=== PATIENT | female | born 1970 | race Caucasian/White ===

== ENCOUNTER 2021-12-20 06:41 | Emergency (ER) | payer BC, SELFPAY ==
[2021-12-20 07:28] VITALS: BP 151/97; PULSE 78; RESP 14; TEMP 36.4; O2SAT 95; BMI 24.7
[2021-12-20 07:30] LABS: Appearance Urine HAZY; Color Urine YELLOW; Glucose Urine UA NEG (NEG); Leukocyte Esterase Urine 2+ (NEG); Nitrite Urine NEG (NEG); PH 5.5 (5.0-8.0); UACC Culture Trigger YES; Urine Blood 1+ (NEG); Urine Ketones NEG (NEG); Urine Protein NEG (NEG-TRACE)
--- NOTE | 2021-12-20 07:35 | ED.FEMALEGU ---
HPI - Female Genitourinary General Chief complaint: Urogenital-Female Stated complaint: question uti Time Seen by Provider: 12/20/21 07:14 Source: patient Mode of arrival: ambulatory Limitations: no limitations History of Present Illness MD elicited complaint: dysuria and UTI Pertinent past history: other (hx of UTIs in 20s) Onset (ago): day(s) (2 days ago) Location of symptoms: suprapubic Severity: mild Quality of pain: burning Consistency: intermittent Vaginal discharge: none Vaginal bleeding: none Urinary symptoms: Dysuria, Urgency and Frequency Exacerbating factors: urination and intercourse Relieving factors: none Associated symptoms: denies other symptoms Treatment prior to arrival: none Sexual activity: Yes (started after intercourse) Patient : No Related Data Previous Rx's Medication Instructions Recorded cefuroxime axetil 500 mg tablet 500 mg PO BID 7 Days #14 tab 12/20/21 phenazopyridine 100 mg tablet 100 mg PO TID PRN #6 tab 12/20/21 (Pyridium) Allergies Allergy/AdvReac Type Severity Reaction Status Date / Time Sulfa (Sulfonamide Allergy Mild Itching Verified 12/20/21 07:41 Antibiotics) Review of Systems Review of Systems: Constitutional : No Fever, No Chills ENT/Mouth : No sore throat Eyes: No Eye Pain, No Swelling, No Redness Cardiovascular : No Chest Pain, No SOB Respiratory : No Cough, No Sputum, No Wheezing Gastrointestinal : no Nausea, no Vomiting, No Diarrhea, no abdominal pain Genitourinary : positive Dysuria, positive urinary frequency, no Hematuria, no Flank Pain, no hesitancy, no vaginal discharge Musculoskeletal : No joint pain, No Myalgias Skin : No Skin Lesions, No rash Neuro : No Weakness, No Numbness, No Headache Psych : No Anxiety/Panic, No Depression Heme/Lymph: No Bruising, No Lymphadenopathy Endocrine : No Polyuria, No Polydipsia All other systems reviewed and are negative [facility] Past Medical History Attestation statement: The following information was validated with the patient. Medical History Asthma UTI (urinary tract infection) Social History Social History (Updated 12/20/21 @ 07:44 by Danielle Redman DO) Patient Tobacco Use Status: Tobacco use Unknown Advance Directives: No Advance Directives Information Provided: No Patient : No Physical Exam Vital Signs: Vital Signs: Last Vital Signs Temp 97.6 F 12/20/21 07:28 Pulse 78 12/20/21 07:28 Resp 14 12/20/21 07:28 BP 151/97 H 12/20/21 07:28 Pulse Ox 95 12/20/21 07:28 BMI result Body Mass Index 24.7 Appearance: Alert. Oriented X3. No acute distress. Eyes: Pupils equal, round and reactive to light. ENT: Pharynx normal. Neck: Normal inspection. Neck supple. CVS: Normal heart rate and rhythm. Pulses normal. Respiratory: No respiratory distress. Breath sounds normal. Abdomen: Soft and nontender. no CVA ttp Skin: Skin warm and dry. Normal skin color. Normal skin turgor. Extremities: No lower extremity edema. No calf ttp Neuro: Oriented X 3. No motor deficit. No sensory deficit. MDM - Female Genitourinary MDM Narrative Medical decision making narrative: 51 yo female with recent intercourse which triggers her UTIs comes in with dysuria and frequency no discharge/vomiting/flank pain no concern for STI but hx of UTI and BV when she has sex with her partner - at this time will obtain UA and BV panel. No signs of pyelonephritis. Dispo per results and findings. Lab Data Labs: Lab Results 12/20/21 Range/Units 07:18 Urine Color YELLOW Urine Appearance HAZY Urine pH 5.5 (5.0-8.0) Ur Specific [place] 1.020 (1.005-1.025) Urine Protein NEG (NEG-TRACE) MG/DL Urine Glucose (UA) NEG (NEG) MG/DL Urine Ketones NEG (NEG) MG/DL Urine Blood 1+ H (NEG) Urine Nitrite NEG (NEG) Ur Leukocyte Esterase 2+ H (NEG) Urine RBC 0-2 (0) /HPF Urine WBC 15-29 H (0-4) /HPF Urine WBC Clumps NOTED Ur Squamous Epith Cells 1+ /LPF Urine Bacteria TRACE /LPF Discharge Plan Discharge Clinical Impression: Urinary tract infection Qualifiers: Urinary tract infection type: acute cystitis Hematuria presence: without hematuria Qualified Code(s): N30.00 - Acute cystitis without hematuria Patient Disposition: Home, Self-Care Instructions: Urinary Tract Infection in Women (ED) Additional Instructions: return to ED for any worsening symptoms or concerns bacterial vaginosis panel will result in 24 hours we will call you if positive Prescriptions: New cefuroxime axetil 500 mg tablet 500 mg PO BID 7 Days Qty: 14 0RF phenazopyridine [Pyridium] 100 mg tablet 100 mg PO TID PRN (Reason: pain) Qty: 6 0RF Stand Alone Forms: Work/School Release
[2021-12-20 07:55] LABS: Bacteria Urine TRACE /LPF; RBC Urine 0-2 /HPF (0); Squamous Epithelial Cell Urine 1+ /LPF; WBC Clumps Urine NOTED
[2021-12-20 12:44] LABS: BV Int Neg Control Negative (Negative); BV Int Pos Control Positive (Positive)
== END 2021-12-20 08:28 | disposition home or self-care (01) ==
PROVIDERS: Emergency Provider Emergency Medicine
DX: N30.00 Acute cystitis without hematuria (principal); R30.0 Dysuria; Z79.899 Other long term (current) drug therapy
CPT/HCPCS: 81001; 87086; 87147; 87480; 87510; 87660; 99283

== ENCOUNTER 2022-01-08 20:01 | Emergency (ER) | payer BC, SELFPAY ==
--- NOTE | ~2022-01-08 | XR_ITS ---
EXAMINATION: PORTABLE CHEST 1 VIEW CLINICAL INFORMATION: CP . COMPARISON: 02/28/2020 chest x-ray. TECHNIQUE: Portable frontal view of the chest was obtained. FINDINGS: Lungs well-expanded. There are subtle scattered opacities bilaterally. I'm uncertain if this is due to underlying airspace disease or multiple healing rib fractures. There is a displaced fracture through the anterior lateral left sixth and seventh rib. Bony calcification of multiple healing ribs could have this appearance. These changes are new from the prior study. No dense consolidation. There is blunting of the right costophrenic angle suggesting a small right-sided pleural effusion. No overt edema or pneumothorax. Cardiac and mediastinal silhouettes within normal limits for size. No acute bony abnormality. XR/XR chest 1V IMPRESSION: Small right-sided effusion. There is subtle nodular opacities bilaterally. I'm uncertain if this represents an underlying airspace disease or multiple healing rib fractures. There do appear to be at least 2 healing rib fractures on the left. Would clinically correlate for history of trauma.
--- NOTE | 2022-01-08 20:03 | ECG_ITS ---
Test Reason : CP Blood Pressure : / mmHG Vent. Rate : 092 BPM Atrial Rate : 092 BPM P-R Int : 142 ms QRS Dur : 094 ms QT Int : 386 ms P-R-T Axes : 067 045 047 degrees QTc Int : 477 ms Normal sinus rhythm Normal ECG No previous ECGs available Referred By: Generic ED Physician Electronically Signed By:LANDON DAILEY MD
[2022-01-08 20:11] VITALS: BP 146/97; PULSE 95; RESP 18; TEMP 37.2; O2SAT 94; BMI 27.3
[2022-01-08 20:34] LABS: MANUAL DIFF FLAG NO
[2022-01-08 20:36] LABS: Basophils Percent Auto 0.4 % (0-2); Eosinophils Absolute Auto 0.1 X10*3/uL (0.0-0.4); Eosinophils Percent Auto 0.5 % (0-4); Hematocrit 42.6 % (37.0-47.0); Hemoglobin 14.3 g/dl (12.0-16.0); Imm Gran Abs Auto 0.04 X10*3/uL (0.00-0.03); Imm Gran Pct Auto 0.4 % (0.0-0.4); Lymphocytes Absolute Auto 4.2 X10*3/uL (1.2-4.9); Lymphocytes Percent Auto 37.6 % (20-40); Mean Corpuscular HGB Conc 33.6 g/dl (31.0-35.0); Mean Corpuscular Hemoglobin 33.9 pg (27.0-33.0); Mean Corpuscular Volume 100.9 fL (80.0-98.0); Mean Platelet Volume 9.1 fL (9.4-12.3); Monocytes Absolute Auto 0.4 X10*3/uL (0.1-1.2); Monocytes Percent Auto 3.6 % (2-11); Neutrophils Absolute Auto 6.5 x10*3/uL (2.0-8.3); Neutrophils Percent Auto 57.5 % (45-73); Platelet Count 286 X10*3/uL (160-400); Red Blood Count 4.22 X10*6/uL (4.20-5.50); Red Cell Distribution Width 12.2 % (11.0-16.0); White Blood Count 11.3 X10*3/uL (4.8-10.8)
[2022-01-08 20:52] LABS: Anion Gap 14 (12-20); Blood Urea Nitrogen 15 mg/dL (9-16); Calcium 9.2 mg/dL (8.4-10.2); Carbon Dioxide 22 mmol/L (22-29); Chloride 106 mmol/L (96-108); Creatinine Clr Calc Pharmacy 114.8; Estimated Glomerular Filt Rate > 60; Glucose Random 110 mg/dL (60-115); Potassium 3.5 mmol/L (3.3-5.1); Sodium 138 mmol/L (135-145)
[2022-01-08 21:00] LABS: Troponin-I High Sensitivity < 3.5 ng/L (<3.5-17.0)
--- NOTE | 2022-01-08 21:14 | ED_ITS ---
HPI - Chest Pain General Chief Complaint: Chest Pain Stated Complaint: heart pain, chest tightness 1hr, asthmatic Time Seen by Provider: 01/08/22 21:01 History of Present Illness HPI narrative: Patient is a 51-year-old female presents today with having chest pain that is on right side and on the left side. The right-sided chest pain is more constant it has been ongoing since 17:00 left-sided chest pain is episodic it comes every 15 minutes it is very sharp it lasts for approximately 10 seconds and goes away. No extreme shortness of breath no diaphoresis. Patient does have a history hypertension, high cholesterol and has been a lifelong smoker. Patient denies any history of PA. patient from home. No coughing or congestion upper respiratory symptoms the change from previous. Patient immunized for COVID. Related Data Previous Rx's Medication Instructions Recorded cefuroxime axetil 500 mg tablet 500 mg PO BID 7 Days #14 tab 12/20/21 phenazopyridine 100 mg tablet 100 mg PO TID PRN #6 tab 12/20/21 (Pyridium) metronidazole 500 mg tablet 500 mg PO BID 10 Days #20 tab 12/22/21 Allergies Allergy/AdvReac Type Severity Reaction Status Date / Time Sulfa (Sulfonamide Allergy Mild Itching Verified 12/20/21 07:41 Antibiotics) Review of Systems Review of Systems: No fever no chills positive generalized malaise positive chest pain no diaphoresis Yes all other systems are reviewed and are negative [facility] Past Medical History Attestation statement: The following information was validated with the patient. Source: unable to obtain Medical History Asthma UTI (urinary tract infection) Social History Social History Patient Tobacco Use Status: Tobacco use Unknown Advance Directives: No Advance Directives Information Provided: Yes Physical Exam Vital Signs: Vital Signs: Last Vital Signs Temp 98.1 F 01/08/22 21:21 Pulse 87 01/08/22 23:25 Resp 20 01/08/22 23:25 BP 139/90 H 01/08/22 21:21 Pulse Ox 95 01/08/22 21:21 BMI result Body Mass Index 27.3 Appearance: Alert. Oriented X3. No acute distress. Eyes: Pupils equal, round and reactive to light. ENT: Pharynx normal. Neck: Normal inspection. Neck supple. No lymph nodes noted. No crepitus CVS: Normal heart rate and rhythm. Pulses normal. Normal S1 and S2 Respiratory: No respiratory distress. Breath sounds normal. No Wheezing. No rales Abdomen: Soft and nontender. No rigidity. No distention. good BS x4 Skin: Skin warm and dry. Normal skin color. Normal skin turgor. Extremities: No lower extremity edema. Neurovascular intact to all extremities. No Lacerations. No Rash Neuro: Oriented X 3. No motor deficit. No sensory deficit. Moving all extermities. No slurred speech MDM - Chest Pain MDM Narrative Medical decision making narrative: EKG showed a sinus pattern heart rate is 90 VA QRS QT within normal limits there is no acute ST segment elevation noted. Patient's chest pain is atypical although she does have multiple risk factor including smoking, hypertension, hypercholesterolemia. Patient's chest x-ray showed some nodules along with a small pleural effusion. Explained to patient the need to closely follow-up. Risk of cancer exists given patient's extensive history of smoking. Patient states understanding. Will get a 2nd set of cardiac enzymes given patient has a constant chest pain as well. Patient is currently in stable condition. Chest pain is atypical does have multiple risk factor with a negative troponin. Heart score is a 3. Two sets of heart enzymes were negative. They would less than 3.5. Patient's D-dimer is less than 250. No evidence for pulmonary emboli. Patient's chest pain is extremely atypical. Chest x-ray did find some nodules. Positive small pleural effusion. Will have patient follow-up on an outpatient basis. She is in stable condition with discharge home. Medical Records Data Attestation: I reviewed the patient's medical records. Lab Data Attestation: I reviewed the patient's lab results. Result diagrams: 01/08/22 20:28 01/08/22 20:32 Labs: Lab Results 01/08/22 01/08/22 01/08/22 Range/Units 20:28 20:32 20:32 WBC 11.3 H (4.8-10.8) X10*3/uL RBC 4.22 (4.20-5.50) X10*6/uL Hgb 14.3 (12.0-16.0) g/dl Hct 42.6 (37.0-47.0) % MCV 100.9 H (80.0-98.0) fL MCH 33.9 H (27.0-33.0) pg MCHC 33.6 (31.0-35.0) g/dl RDW 12.2 (11.0-16.0) % Plt Count 286 (160-400) X10*3/uL MPV 9.1 L (9.4-12.3) fL Immature Gran % (Auto) 0.4 (0.0-0.4) % Neut % (Auto) 57.5 (45-73) % Lymph % (Auto) 37.6 (20-40) % [place] % (Auto) 3.6 (2-11) % Eos % (Auto) 0.5 (0-4) % Baso % (Auto) 0.4 (0-2) % Lymph # (Auto) 4.2 (1.2-4.9) X10*3/uL [place] # (Auto) 0.4 (0.1-1.2) X10*3/uL Eos # (Auto) 0.1 (0.0-0.4) X10*3/uL Baso # (Auto) 0.0 (0.0-0.2) X10*3/uL Abs Immat Gran (auto) 0.04 H (0.00-0.03) X10*3/uL Absolute Neuts (auto) 6.5 (2.0-8.3) x10*3/uL Absolute Nucleated RBC 0.000 (0.0-0.012) X10*3/uL Nucleated RBC % (auto) 0.0 (0.0-0.2) /100WBC D-Dimer High Sensitivty NG/ML Sodium 138 (135-145) mmol/L Potassium 3.5 (3.3-5.1) mmol/L Chloride 106 (96-108) mmol/L Carbon Dioxide 22 (22-29) mmol/L Anion Gap 14 (12-20) BUN 15 (9-16) mg/dL Creatinine 0.55 (0.5-1.4) mg/dL Estim Creat Clear Calc 114.8 Estimated GFR > 60 Random Glucose 110 (60-115) mg/dL Calcium 9.2 (8.4-10.2) mg/dL Troponin I High Sens < 3.5 (<3.5-17.0) ng/L COVID-19 (MARKEL) (Negative) COVID-19 Clin Com 01/08/22 01/08/22 01/08/22 Range/Units 21:25 21:58 22:28 WBC (4.8-10.8) X10*3/uL RBC (4.20-5.50) X10*6/uL Hgb (12.0-16.0) g/dl Hct (37.0-47.0) % MCV (80.0-98.0) fL MCH (27.0-33.0) pg MCHC (31.0-35.0) g/dl RDW (11.0-16.0) % Plt Count (160-400) X10*3/uL MPV (9.4-12.3) fL Immature Gran % (Auto) (0.0-0.4) % Neut % (Auto) (45-73) % Lymph % (Auto) (20-40) % [place] % (Auto) (2-11) % Eos % (Auto) (0-4) % Baso % (Auto) (0-2) % Lymph # (Auto) (1.2-4.9) X10*3/uL [place] # (Auto) (0.1-1.2) X10*3/uL Eos # (Auto) (0.0-0.4) X10*3/uL Baso # (Auto) (0.0-0.2) X10*3/uL Abs Immat Gran (auto) (0.00-0.03) X10*3/uL Absolute Neuts (auto) (2.0-8.3) x10*3/uL Absolute Nucleated RBC (0.0-0.012) X10*3/uL Nucleated RBC % (auto) (0.0-0.2) /100WBC D-Dimer High Sensitivty < 150 NG/ML Sodium (135-145) mmol/L Potassium (3.3-5.1) mmol/L Chloride (96-108) mmol/L Carbon Dioxide (22-29) mmol/L Anion Gap (12-20) BUN (9-16) mg/dL Creatinine (0.5-1.4) mg/dL Estim Creat Clear Calc Estimated GFR Random Glucose (60-115) mg/dL Calcium (8.4-10.2) mg/dL Troponin I High Sens < 3.5 (<3.5-17.0) ng/L COVID-19 (MARKEL) Negative (Negative) COVID-19 Clin Com See Note Discharge Plan Discharge Clinical Impression: Atypical chest pain Patient Disposition: Home, Self-Care Instructions: Chest Pain (ED) Prescriptions: No Action cefuroxime axetil 500 mg tablet 500 mg PO BID 7 Days Qty: 14 0RF phenazopyridine [Pyridium] 100 mg tablet 100 mg PO TID PRN (Reason: pain) Qty: 6 0RF metronidazole 500 mg tablet 500 mg PO BID 10 Days Qty: 20 0RF Referrals: Physician,Unknown J [Primary Care Provider] - 2 days ( Nodules were noted in your chest x-ray. Given you a smoker you will need close follow-up with your primary physician for further workup. Risk of cancer exists.) Stewart Enciso MD [Physician] - 2 days
[2022-01-08 21:21] VITALS: BP 139/90; PULSE 92; RESP 16; TEMP 36.7; O2SAT 95
[2022-01-08 22:06] LABS: COVID-19 Test Negative (Negative)
[2022-01-08 22:26] LABS: Troponin-I High Sensitivity < 3.5 ng/L (<3.5-17.0)
[2022-01-08 23:25] VITALS: PULSE 87; RESP 20; O2SAT 97
[2022-01-08] MEDS: Albuterol Sulfate (0.083%) 2.5 MG/3 ML VIAL.NEB INHALE (23:25)
[2022-01-09 00:45] LABS: D Dimer High Sensitivity < 150 NG/ML
== END 2022-01-09 01:08 | disposition home or self-care (01) ==
PROVIDERS: Emergency Provider Emergency Medicine Emergency Medical Services
DX: R07.89 Other chest pain (principal); R91.8 Other nonspecific abnormal finding of lung field; J90 Pleural effusion, not elsewhere classified; Z20.822 Contact with and (suspected) exposure to COVID-19; I10 Essential (primary) hypertension; E78.5 Hyperlipidemia, unspecified; F17.200 Nicotine dependence, unspecified, uncomplicated
CPT/HCPCS: 36415; 71045; 80048; 84484; 85025; 85379; 87635; 93005; 94640; 99283; 99284

== ENCOUNTER 2022-04-19 10:36 | Emergency (ER) | payer BC, SELFPAY ==
--- NOTE | ~2022-04-19 | XR_ITS ---
EXAMINATION: XR CHEST CLINICAL INFORMATION: Cough and wheezing COMPARISON: Previous chest x-ray most recent December 2021 TECHNIQUE: 2 views of the chest were obtained. FINDINGS: The cardiac and mediastinal contours are normal. There are several nodular opacities in the left lung. These are in a line and appear to be associated with healing rib fractures. There are healing left anterior fifth and sixth and seventh rib fractures. There are old healed right posterior lateral seventh and eighth rib fractures. The lungs are otherwise clear. There is no pleural effusion or pneumothorax. There are degenerative changes of the spine. XR/XR chest 2V IMPRESSION: Left nodular densities probably related to healing rib fractures. There is evidence of bilateral healing rib fractures.
[2022-04-19 10:45] VITALS: BP 98/48; PULSE 94; RESP 18; TEMP 36.9; O2SAT 98; BMI 22.9
[2022-04-19 11:14] LABS: COVID-19 Test Negative (Negative); IDNOW Serial# 9DB6401D; Influenza A Negative (Negative); Influenza B2 Negative (Negative)
--- NOTE | 2022-04-19 11:26 | ED_ITS ---
HPI - General Adult General Chief complaint: General Medical Stated complaint: SOB, loss of appetite, sore throat, body aches Time Seen by Provider: 04/19/22 11:16 Source: patient and family Mode of arrival: ambulatory Limitations: no limitations History of Present Illness HPI narrative: 51-year-old female with a history of asthma and hypertension here with reports of continued cough, wheezing, shortness of breath since April 06. Patient completed a course of azithromycin and prednisone yesterday but having continued symptoms. She does feel like the antibiotics did seem to help. She denies any fevers. Patient has had body aches, nausea, loss of appetite, headache, bilateral ear pain and sore throat. She has received COVID vaccination Related Data Previous Rx's Medication Instructions Recorded cefuroxime axetil 500 mg tablet 500 mg PO BID 7 days #14 tabs 12/20/21 phenazopyridine 100 mg tablet 100 mg PO TID PRN pain 6 doses #6 12/20/21 (Pyridium) tabs metronidazole 500 mg tablet 500 mg PO BID 10 days #20 tabs 12/22/21 albuterol sulfate 2.5 mg (3 mL) inhalation Q4-6H PRN 01/09/22 sob #75 mL azithromycin 250 mg tablet See Rx Instructions PO .COMPLEX 01/09/22 upper resp infection #6 tabs doxycycline monohydrate 100 mg 100 mg PO BID #14 tabs 04/19/22 tablet ipratropium 0.5 mg-albuterol 3 mg 3 ml inhalation Q4H PRN wheezing 04/19/22 (2.5 mg base)/3 mL nebulization #90 mL soln ondansetron 4 mg disintegrating 4 mg PO Q6H PRN nausea and 04/19/22 tablet vomiting #14 tabs prednisone 20 mg tablet 40 mg PO DAILY #10 tabs 04/19/22 Allergies Allergy/AdvReac Type Severity Reaction Status Date / Time Sulfa (Sulfonamide Allergy Mild Itching Verified 12/20/21 07:41 Antibiotics) Review of Systems Review of Systems: Yes all other systems are reviewed and are negative Constitutional: Constitutional: Reports no additional constitutional complaints, Reports body ache(s), Reports chills, Denies fever(s), Reports headache(s), Reports malaise and Denies weakness Eyes: Eyes: Reports no additional eye complaints and Denies change in vision ENT: Reports system reviewed and no additional complaints, except as documented, Denies dizziness, Reports headache(s), Denies nasal congestion, Denies nasal discharge and Denies neck pain Cardiovascular: Cardiovascular: Reports no additional cardiovascular complaints, Denies chest pain, Denies leg edema and Reports dyspnea Respiratory: Respiratory: Reports no additional respiratory complaints, Denies cough, Reports dyspnea and Reports wheezing Gastrointestinal: Gastrointestinal: Reports no additional gastrointestinal complaints, Denies abdominal pain, Denies diarrhea, Denies nausea and Denies vomiting Genitourinary: Genitourinary: Reports no additional female genitourinary complaints and Denies urinary incontinence Musculoskeletal: Musculoskeletal: Reports no additional musculoskeletal complaints, Denies back pain, Denies arthralgias, Denies joint swelling, Denies neck pain, Denies numbness and Denies tingling Integumentary/Breasts: Skin/Breast: Reports system reviewed and no additional complaints, except as docu and Denies rash Neurologic: Reports system reviewed and no additional complaints, except as documented, Denies dizziness, Reports headache(s), Denies numbness, Denies tingling and Denies weakness Allergic/Immunologic: Allergic/Immunologic: Reports wheezing PMFSH Past Medical History Attestation statement: The following information was validated with the patient. Source: old records reviewed and nursing notes reviewed Medical History Asthma UTI (urinary tract infection) Social History Social History Patient Tobacco Use Status: Tobacco use Unknown Advance Directives: Yes Advance Directives Information Provided: Yes Advance Directives on File: No Physical Exam ED Vital Signs: Vital Signs - 24 hr 04/19/22 10:45 04/19/22 12:19 Temperature 98.4 F Pulse Rate 94 95 Respiratory Rate 18 18 Blood Pressure 98/48 L 128/82 Pulse Oximetry 98 97 Oxygen Delivery Method Room Air Room Air BMI result Body Mass Index 22.9 Const General: cooperative, healthy appearing, comfortable and no acute distress Orientation/consciousness: patient oriented x3 Limitations: no limitations HENMT Head: Yes normal to inspection Ears: hearing grossly normal bilaterally General nose exam: Normal external nose present Face and sinus: Yes normal facial exam Mouth: Normal oral and palatal mucosa present Teeth and gingiva: dentition normal Throat: Yes posterior oropharynx normal, Yes tonsils normal and Yes uvula midline Eyes General: appearance normal, both eyes and all related structures Pupils: Equal, round and reactive pupils present Neck Neck: Yes normal visual inspection, Yes full ROM and Yes no lymphadenopathy Chest Chest palpation & inspection: normal inspection of the chest Resp Other: Expiratory wheezing throughout, upper airway is coarse Effort & Inspection: normal respiratory effort Cardio Rate: regular rate Rhythm: regular rhythm Peripheral pulses: Peripheral pulses 2+ throughout GI Inspection: Yes normal to inspection Back/Spine/Pelvis Thoracic/Lumbar Spine: thoracic and lumbar spine normal to inspection Skin General skin exam: no rashes or lesions noted Neuro General: patient oriented x3 and moves all extremities Cranial nerves: Yes Equal, round and reactive pupils present Extrem General: Yes normal to inspection, Yes no pedal edema and Yes no calf tenderness Course Course Course Narrative: COVID and flu testing were negative. Chest x-ray shows old healing rib fractures which patient tells me is from a previous injury. On the left lower lung base there is a concern for does density which may be seen with pneumonia. As patient is symptomatic will treat with course of antibiotics. She also has wheezing on exam so will give her course of prednisone and recommend she continue her nebulizers at home. She will follow up outpatient with her primary care doctor. Reviewed worrisome signs and symptoms of when to return to the emergency department. Comfortable discharge home. Patient has her initial follow-up with [facility] pulmonology on June 03 which I recommended she continue Medical Decision Making MDM Narrative Medical decision making narrative: 51-year-old female with history of hypertension and asthma here with cough, wheezing, chest congestion, sore throat, ear pain, headache, body aches since April 06 despite completing a course of antibiotics and prednisone. On arrival vitals are stable. Patient does have expiratory wheezing throughout and coarse breath sounds. Will check chest x-ray, flu screen, covid screen Medical Records Medical records reviewed: Yes I reviewed the patient's medical records. Lab Data Lab results reviewed: Yes I reviewed the patient's lab results. Labs: Lab Results 04/19/22 04/19/22 Range/Units 10:48 10:48 COVID-19 (MARKEL) Negative (Negative) COVID-19 Clin Com See Note Influenza Type A (VIVIAN) Negative (Negative) Influenza Type B (VIVIAN) Negative (Negative) Influenza A & B Note See Note Imaging Data Chest x-ray: Attestation: I personally reviewed and interpreted this imaging study as follows: Radiologist's impression: Launch?Image [address] [address] XRay Report Signed Patient: Padmaja Lance MR#: [id number] : 1970 Acct:[id number] Age/Sex: 51 / F ADM Date: 04/19/22 Loc: .ED Attending Dr: Ordering Physician: Ayesha Robertson NP Date of Service: 04/19/22 Procedure(s): XR chest 2V Accession Number(s): [id number] cc: Ayesha Robertson NP~ EXAMINATION: XR CHEST CLINICAL INFORMATION: Cough and wheezing COMPARISON: Previous chest x-ray most recent December 2021 TECHNIQUE: 2 views of the chest were obtained. FINDINGS: The cardiac and mediastinal contours are normal. There are several nodular opacities in the left lung. These are in a line and appear to be associated with healing rib fractures. There are healing left anterior fifth and sixth and seventh rib fractures. There are old healed right posterior lateral seventh and eighth rib fractures. The lungs are otherwise clear. There is no pleural effusion or pneumothorax. There are degenerative changes of the spine. XR/XR chest 2V IMPRESSION: Left nodular densities probably related to healing rib fractures. There is evidence of bilateral healing rib fractures. Discharge Plan Discharge Clinical Impression: Pneumonia, Asthma exacerbation Patient Disposition: Home, Self-Care Instructions: Asthma (ED), Community Acquired Pneumonia (ED) Additional Instructions: Continue nebulizers at home Flu and COVID testing are negative Pneumonia is in the left lower lobe Prescriptions: New doxycycline monohydrate 100 mg tablet 100 mg PO BID Qty: 14 0RF prednisone 20 mg tablet 40 mg PO DAILY Qty: 10 0RF ondansetron 4 mg tablet,disintegrating 4 mg PO Q6H PRN (Reason: nausea and vomiting) Qty: 14 0RF ipratropium-albuterol 0.5 mg-3 mg(2.5 mg base)/3 mL solution for nebulization 3 ml inhalation Q4H PRN (Reason: wheezing) Qty: 90 0RF No Action cefuroxime axetil 500 mg tablet 500 mg PO BID 7 Days Qty: 14 0RF phenazopyridine [Pyridium] 100 mg tablet 100 mg PO TID PRN (Reason: pain) Qty: 6 0RF metronidazole 500 mg tablet 500 mg PO BID 10 Days Qty: 20 0RF azithromycin 250 mg tablet See Rx Instructions .ROUTE .COMPLEX Qty: 6 0RF Rx Instructions: take 500 mg today (day 1), then 250 mg for 4 days (days 2-5) albuterol sulfate 2.5 mg /3 mL (0.083 %) solution for nebulization 2.5 mg inhalation Q4-6H PRN (Reason: sob) Qty: 75 0RF Referrals: Physician,Nonstaff [Primary Care Provider] - Stand Alone Forms: Work/School Release Interventions: ED Discharge Assessment Last Done: 04/19/22 13:08 Discharge Date/Time: 04/19/22 13:09
[2022-04-19 12:19] VITALS: BP 128/82; PULSE 95; RESP 18; O2SAT 97
== END 2022-04-19 13:09 | disposition home or self-care (01) ==
PROVIDERS: Emergency Provider Emergency Medicine
DX: J18.9 Pneumonia, unspecified organism (principal); R05.9 Cough, unspecified; M79.10 Myalgia, unspecified site; R06.02 Shortness of breath; Z20.822 Contact with and (suspected) exposure to COVID-19; Z79.899 Other long term (current) drug therapy
CPT/HCPCS: 71046; 87502; 87635; 99283

== ENCOUNTER 2022-06-28 20:07 | Emergency (ER) | payer BC, SELFPAY ==
[2022-06-28 20:20] VITALS: BP 141/71; BP 141/92; PULSE 104; PULSE 107; RESP 24; TEMP 36.3; O2SAT 94; O2SAT 96; BMI 26.3
--- NOTE | 2022-06-28 20:40 | ED.AMS ---
HPI - Altered Mental Status General Chief Complaint: Altered Mental Status Stated Complaint: hallucinations Time Seen by Provider: 06/28/22 20:37 Source: patient and EMS Mode of arrival: EMS Limitations: altered mental status History of Present Illness HPI narrative: Patient was healthy use edible in after eating edible feels hallucinating, likely edible was laced also patient had few drinks earlier today vomited at the time of triage intoxicated on arrival Related Data Previous Rx's Medication Instructions Recorded cefuroxime axetil 500 mg tablet 500 mg PO BID 7 days #14 tabs 12/20/21 phenazopyridine 100 mg tablet 100 mg PO TID PRN pain 6 doses #6 12/20/21 (Pyridium) tabs metronidazole 500 mg tablet 500 mg PO BID 10 days #20 tabs 12/22/21 albuterol sulfate 2.5 mg/3 mL 2.5 mg (3 mL) inhalation Q4-6H PRN 01/09/22 (0.083 %) solution for nebulization sob #75 mL azithromycin 250 mg tablet See Rx Instructions PO .COMPLEX 01/09/22 upper resp infection #6 tabs doxycycline monohydrate 100 mg 100 mg PO BID #14 tabs 04/19/22 tablet ipratropium 0.5 mg-albuterol 3 mg 3 ml inhalation Q4H PRN wheezing 04/19/22 (2.5 mg base)/3 mL nebulization #90 mL soln ondansetron 4 mg disintegrating 4 mg PO Q6H PRN nausea and 04/19/22 tablet vomiting #14 tabs prednisone 20 mg tablet 40 mg PO DAILY #10 tabs 04/19/22 Allergies Allergy/AdvReac Type Severity Reaction Status Date / Time Sulfa (Sulfonamide Allergy Mild Itching Verified 12/20/21 07:41 Antibiotics) Review of Systems Review of Systems: Yes all other systems are reviewed and are negative PMFSH Past Medical History Medical History Asthma UTI (urinary tract infection) Social History Social History Patient Tobacco Use Status: Tobacco use Unknown Advance Directives: No Advance Directives Information Provided: Yes Physical Exam ED Vital Signs: Vital Signs - 24 hr 06/28/22 20:20 06/28/22 22:27 Temperature 97.4 F 97.0 F Pulse Rate 104 H 84 Respiratory Rate 24 H 20 Blood Pressure 141/92 H 135/91 H Pulse Oximetry 94 95 Oxygen Delivery Method Nasal Cannula Nasal Cannula Oxygen Flow Rate 2 BMI result Body Mass Index 26.3 Appearance: Lethargic easy to arouse etoh+ Eyes: Pupils dilated reacting to the light, No Nystagmus ENT: Pharynx normal. Oral Mucosa moist atraumatic normocephalic Neck: Normal inspection. Neck supple. CVS: Normal heart rate and rhythm. Pulses normal. Respiratory: No respiratory distress. Equal air entry bilateral, no wheezing/rales/rhonchi Abdomen: Soft and nontender. Bowel sounds are present, no mass palpable Skin: Skin warm and dry. Normal skin color. Normal skin turgor. Extremities: No lower extremity edema. No calf tenderness Neuro: Lethargic. Moving all 4 extremities MDM - Altered Mental Status MDM Narrative Medical decision making narrative: 0115 Patient intoxicated with use of alcohol and edible ETOH level 298 sleepy at this time unable to give a urine sample will re-evaluate after some time and try to get the urine sample for drug screening anticipate to discharge in AM Lab Data Attestation: I reviewed the patient's lab results. Result diagrams: 06/28/22 21:07 06/28/22 21:07 Labs: Lab Results 06/28/22 06/28/22 06/28/22 Range/Units 21:07 21:07 21:07 WBC 10.4 (4.8-10.8) X10*3/uL RBC 4.54 (4.20-5.50) X10*6/uL Hgb 15.2 (12.0-16.0) g/dl Hct 44.5 (37.0-47.0) % MCV 98.0 (80.0-98.0) fL MCH 33.5 H (27.0-33.0) pg MCHC 34.2 (31.0-35.0) g/dl RDW 12.4 (11.0-16.0) % Plt Count 275 (160-400) X10*3/uL MPV 8.9 L (9.4-12.3) fL Immature Gran % (Auto) 0.3 (0.0-0.4) % Neut % (Auto) 37.5 L (45-73) % Lymph % (Auto) 53.7 H (20-40) % [place] % (Auto) 4.2 (2-11) % Eos % (Auto) 3.6 (0-4) % Baso % (Auto) 0.7 (0-2) % Lymph # (Auto) 5.6 H (1.2-4.9) X10*3/uL [place] # (Auto) 0.4 (0.1-1.2) X10*3/uL Eos # (Auto) 0.4 (0.0-0.4) X10*3/uL Baso # (Auto) 0.1 (0.0-0.2) X10*3/uL Abs Immat Gran (auto) 0.03 (0.00-0.03) X10*3/uL Absolute Neuts (auto) 3.9 (2.0-8.3) x10*3/uL Absolute Nucleated RBC 0.000 (0.0-0.012) X10*3/uL Nucleated RBC % (auto) 0.0 (0.0-0.2) /100WBC Smear Tech's Comments VERIFIED Sodium 142 (135-145) mmol/L Potassium 3.3 (3.3-5.1) mmol/L Chloride 108 (96-108) mmol/L Carbon Dioxide 21 L (22-29) mmol/L Anion Gap 16 (12-20) BUN 17 H (9-16) mg/dL Creatinine 0.61 (0.5-1.4) mg/dL Estim Creat Clear Calc 97.8 Estimated GFR > 60 Random Glucose 146 H (60-115) mg/dL Calcium 9.4 (8.4-10.2) mg/dL Magnesium 2.0 (1.6-2.6) mg/dL Total Bilirubin 0.5 (0.0-1.0) mg/dL AST 95 H (5-31) U/L ALT 110 H (0-31) U/L Alkaline Phosphatase 157 H (39-117) U/L Total Protein 7.3 (6.5-8.0) g/dL Albumin 4.7 (3.5-5.0) g/dL Lipase 40 (8-78) U/L Ethyl Alcohol 281 mg/dL COVID-19 ([facility]EL) Negative (Negative) COVID-19 Clin Com See Note Discharge Plan Discharge Clinical Impression: Altered mental status, Substance abuse, Alcohol abuse Patient Disposition: Still a Patient Prescriptions: No Action cefuroxime axetil 500 mg tablet 500 mg PO BID 7 Days Qty: 14 0RF phenazopyridine [Pyridium] 100 mg tablet 100 mg PO TID PRN (Reason: pain) Qty: 6 0RF metronidazole 500 mg tablet 500 mg PO BID 10 Days Qty: 20 0RF azithromycin 250 mg tablet See Rx Instructions .ROUTE .COMPLEX Qty: 6 0RF Rx Instructions: take 500 mg today (day 1), then 250 mg for 4 days (days 2-5) albuterol sulfate 2.5 mg /3 mL (0.083 %) solution for nebulization 2.5 mg inhalation Q4-6H PRN (Reason: sob) Qty: 75 0RF doxycycline monohydrate 100 mg tablet 100 mg PO BID Qty: 14 0RF prednisone 20 mg tablet 40 mg PO DAILY Qty: 10 0RF ondansetron 4 mg tablet,disintegrating 4 mg PO Q6H PRN (Reason: nausea and vomiting) Qty: 14 0RF ipratropium-albuterol 0.5 mg-3 mg(2.5 mg base)/3 mL solution for nebulization 3 ml inhalation Q4H PRN (Reason: wheezing) Qty: 90 0RF
[2022-06-28] MEDS: 0.9 % Sodium Chloride 1,000 ML 999 ML IV (21:09)
[2022-06-28 21:14] LABS: Basophils Absolute Auto 0.1 X10*3/uL (0.0-0.2); Basophils Percent Auto 0.7 % (0-2); Eosinophils Absolute Auto 0.4 X10*3/uL (0.0-0.4); Eosinophils Percent Auto 3.6 % (0-4); Hematocrit 44.5 % (37.0-47.0); Hemoglobin 15.2 g/dl (12.0-16.0); Imm Gran Abs Auto 0.03 X10*3/uL (0.00-0.03); Imm Gran Pct Auto 0.3 % (0.0-0.4); Lymphocytes Absolute Auto 5.6 X10*3/uL (1.2-4.9); Lymphocytes Percent Auto 53.7 % (20-40); MANUAL DIFF FLAG SCAN; Mean Corpuscular HGB Conc 34.2 g/dl (31.0-35.0); Mean Corpuscular Hemoglobin 33.5 pg (27.0-33.0); Mean Platelet Volume 8.9 fL (9.4-12.3); Monocytes Absolute Auto 0.4 X10*3/uL (0.1-1.2); Monocytes Percent Auto 4.2 % (2-11); Neutrophils Absolute Auto 3.9 x10*3/uL (2.0-8.3); Neutrophils Percent Auto 37.5 % (45-73); Platelet Count 275 X10*3/uL (160-400); Red Blood Count 4.54 X10*6/uL (4.20-5.50); Red Cell Distribution Width 12.4 % (11.0-16.0); SCAN SMEAR FLAG 1; White Blood Count 10.4 X10*3/uL (4.8-10.8)
[2022-06-28 21:27] LABS: COVID-19 Test Negative (Negative)
[2022-06-28 21:34] LABS: SLIDE REVIEW VERIFIED
[2022-06-28 21:35] LABS: Alanine Aminotransferase 110 U/L (0-31); Albumin Level 4.7 g/dL (3.5-5.0); Alkaline Phosphatase 157 U/L (39-117); Anion Gap 16 (12-20); Aspartate Amino Transferase 95 U/L (5-31); Bilirubin Total 0.5 mg/dL (0.0-1.0); Blood Urea Nitrogen 17 mg/dL (9-16); Calcium 9.4 mg/dL (8.4-10.2); Carbon Dioxide 21 mmol/L (22-29); Chloride 108 mmol/L (96-108); Creatinine Clr Calc Pharmacy 97.8; Estimated Glomerular Filt Rate > 60; Ethanol 281 mg/dL; Glucose Random 146 mg/dL (60-115); Lipase 40 U/L (8-78); Potassium 3.3 mmol/L (3.3-5.1); Sodium 142 mmol/L (135-145); Total Protein 7.3 g/dL (6.5-8.0)
[2022-06-28 22:27] VITALS: BP 135/91; PULSE 84; RESP 20; TEMP 36.1; O2SAT 95
[2022-06-29 02:47] VITALS: BP 114/80; PULSE 89; RESP 17; O2SAT 92
[2022-06-29 03:09] LABS: Amphetamine Screen Urine Not Detected (Not Detect); Barbiturates, Urine Not Detected (Not Detect); Benzodiazepines Screen Urine Not Detected (Not Detect); Cannabinoid Screen Urine POSITIVE (Not Detect); Cocaine Screen Urine Not Detected (Not Detect); Fentanyl, urine Not Detected (Not Detect); Opiate Screen Urine Not Detected (Not Detect); Phencyclidine Screen Urine Not Detected (Not Detect)
[2022-06-29] MEDS: Albuterol Sulfate (0.083%) 2.5 MG/3 ML VIAL.NEB 5 MG INHALE ×2 (03:10→07:15)
[2022-06-29 03:11] VITALS: PULSE 83; RESP 21; O2SAT 96
[2022-06-29 03:59] VITALS: BP 93/61; PULSE 90; RESP 16; O2SAT 93
[2022-06-29 05:53] VITALS: BP 113/75; PULSE 97; RESP 15; O2SAT 94
[2022-06-29 07:15] VITALS: PULSE 89; RESP 20; O2SAT 94
[2022-06-29] MEDS: predniSONE 20 MG TABLET 60 MG PO (07:15)
== END 2022-06-29 07:50 | disposition home or self-care (01) ==
PROVIDERS: Internal Medicine; Emergency Provider Emergency Medicine Emergency Medical Services
DX: F12.151 Cannabis abuse with psychotic disorder with hallucinations (principal); F10.10 Alcohol abuse, uncomplicated; Y90.8 Blood alcohol level of 240 mg/100 ml or more; R06.02 Shortness of breath; Z20.822 Contact with and (suspected) exposure to COVID-19
CPT/HCPCS: 80053; 80307; 82077; 83690; 83735; 85025; 87635; 94640; 96360; 99284